=== PATIENT | female | born 1965 | race Caucasian/White ===

== ENCOUNTER → 2024-01-20 | Day surgery (SDC) | payer OTHER ==
[~2024-01-20] MED LIST: ACETAMINOPHEN 1000 MG/100 ML 100 ML IV ONE; ASPIRIN81 MG PO; CRESTOR40 MG PO; DEXAMETHASONE SOD PHOS INJ 4 MG/ML SDV ONE; EPHEDRINE SULFATE INJ 50 MG/ML VIAL ONE; FENTANYL CITRATE/PF 100MCG/2 ML INJ ONE; GLUCOSAMINE1000 MG PO; GLYCOPYRROLATE INJ 0.2 MG/ML VIAL ONE; HYDROCODON-ACE1 EA11 PO; HYDROMORPHONE 2MG/ML ONE; LIDOCAINE HCL 2% LOCAL INJ 5 ML SDV VIAL INJ ONE; MIDAZOLAM HCL 2 MG/2 ML VIAL ONE; NEOSTIGMINE 1 MG/ML 10ML VIAL ONE; ONDANSETRON HCL INJ 2MG/ML 2ML 2 MG/ML VIAL ONE; PROPOFOL IV EMULSION 10 MG/ML 20 ML VIAL ONE; ROCURONIUM BROMIDE 1 ML IV ONE; VITAMIN D31250 MCG PO
[2024-01-20] MEDS: LACTATED RINGER'S 1,000 ML ONE (06:04)
[2024-01-20 12:25] VITALS: BP 143/87; PULSE 83; RESP 16; O2SAT 100
== END | disposition home or self-care (01) ==
LOC: OR 05:33
PROVIDERS: ATTEND Plastic Surgery
DX: N62 Hypertrophy of breast (principal); E78.5 Hyperlipidemia, unspecified; Z88.8 Allergy status to other drugs, medicaments and biological substances; Z01.810 Encounter for preprocedural cardiovascular examination; Z79.82 Long term (current) use of aspirin; Z79.899 Other long term (current) drug therapy
CPT/HCPCS: 19318; 88305; 93005; J0131; J0690; J1100; J1170; J2003; J2250; J2405; J2704; J2710; J3010; J7121